=== PATIENT | male | born 1955 | race Caucasian/White ===

== ENCOUNTER 2018-03-30 16:34 | Observation (INO) ==
[2018-03-30] MEDS ORDERED: MethylPREDNISolone Sod Succinate Inj 125 MG/2 ML Vial IV.PUSH ONE (17:23)
--- NOTE | 2018-03-30 17:26 | ED ---
HPI General Chief complaint: Syncope Stated complaint: Syncope Time Seen by Provider: 03/30/18 17:22 History of Present Illness HPI narrative: 62-year-old male with a history of HTN, HLD, JAE, anxiety presents to the emergency department for evaluation of cough and syncope. Patient brought by EMS from the [facility]. Per EMS report the patient experienced a syncopal episode while at the [facility] clinic witnessed by the staff and physician. The patient states that he has had cough and shortness of breath for the past 3 weeks. States that he was treated with a Z-Imtiaz by the [facility] the first week his symptoms began. States that his symptoms persisted and last week he drove to [place] for Thanksgiving. He drove 12 hours as his longest stretch. He states that when he was in [place] he went to the [facility] there and was prescribed Augmentin and Medrol Dosepak. States he has been taking these medications without improvement of his shortness of breath or cough. States that this morning at home he was sitting in his chair and had a coughing fit so bad that he passed out momentarily. States that the same thing happened to him while he was at the [facility] being seen today. States that he did not fall down or hurt himself, he was caught by the [facility] employees and sat in a chair. He denies any chest pain, lightheadedness, dizziness, nausea, vomiting, fever, chills, abdominal pain, swelling of the extremities. No other complaints or concerns. Related Data Home Medications Medication Instructions Recorded Confirmed amoxicillin-pot clavulanate 1 tab PO BID 03/30/18 03/30/18 [Augmentin] cholecalciferol (vitamin D3) 1,000 unit PO DAILY 03/30/18 03/30/18 [Vitamin D3] cyanocobalamin (vitamin B-12) 1,000 mcg PO DAILY 03/30/18 03/30/18 [Vitamin B-12] gabapentin 800 mg PO QID 03/30/18 03/30/18 multivitamin 1 tab PO DAILY 03/30/18 03/30/18 omega 5-xle-nxg-fish oil [Fish Oil] 1 cap PO DAILY 03/30/18 03/30/18 paroxetine HCl [Paxil] 10 mg PO HS 03/30/18 03/30/18 Allergies Allergy/AdvReac Type Severity Reaction Status Date / Time No Known Allergies Allergy Verified 03/30/18 17:23 Review of Systems ROS: all other systems reviewed are negative PMFSH Social History Social History Second Hand Smoke Exposure: No Smoking Status: Former smoker Tobacco Type: Cigarettes How Often Do You Have a Drink Containing Alcohol: 2 to 4 times a month Recent Travel in [facility] within the Last 8 Weeks: No Recent Out of Country Travel within the Last 8 Weeks: No Exam Narrative Exam Narrative: GENERAL: Well-nourished and well-developed pleasant patient in no acute distress who is nontoxic appearing. SKIN: Warm and dry without any obvious rashes or lesions. HEAD: Normocephalic and atraumatic. No bony point tenderness or crepitus noted throughout the sinuses. EYES: No injection, drainage, or hyphema noted. PERRLA. EOMI. ENT: No nasal drainage noted. Oropharynx is clear and the TMs are normal with good landmarks. NECK: Supple and the trachea is midline. No lymphadenopathy is noted throughout the cervical chains. No thyroid masses or abnormalities palpated. No carotid bruits auscultated. CARDIOVASCULAR: Regular rate and rhythm. RESPIRATORY: Breath sounds are equal bilaterally with no accessory muscle use, wheezing, rhonchi, or crackles. GASTROINTESTINAL: Abdomen is soft, non-tender, and nondistended. No hepatosplenomegaly. MUSCULOSKELETAL: No obvious deformities, swelling, cyanosis, or ecchymosis is present throughout the upper and lower extremities. Patient has full range of motion without any signs of neurovascular compromise. Distal pulses are 2+ throughout. BACK: Nontender without any obvious deformities, bony point tenderness, or crepitus noted throughout the thoracic and lumbar vertebrae. NEUROLOGICAL: Awake, alert, and oriented. Normal speech and gait. Cranial nerves are grossly intact. Course Initial Documented Vital Signs Temperature 98.5 F 03/30/18 17:10 Pulse Rate 80 03/30/18 17:10 Respiratory Rate 20 03/30/18 17:10 Blood Pressure 138/84 03/30/18 17:10 Pulse Oximetry 98 03/30/18 17:10 Last Documented Vital Signs Temperature 98.5 F 03/30/18 17:10 Pulse Rate 91 H 03/30/18 19:31 Respiratory Rate 18 03/30/18 19:31 Blood Pressure 142/81 H 03/30/18 19:31 Pulse Oximetry 97 03/30/18 19:31 Medical Decision Making ITALO Attestation ITALO supervised visit: Yes Attestation: I, Dr. Pimentel, have reviewed the advance practice practitioner' s documentation and am in agreement, met with the patient face to face, made the diagnosis, and the medical decision making was done by me. The patient was initially evaluated by Bonny Gupta. Please see their complete history and physical. *My assessment and Findings: The patient presents with persistent bronchitic type of symptoms with cough and shortness of breath. Shortness of breath was after a long drive to [place] which raises the risk factor for pulmonary embolus.... Will have CT chest rule out PE as part of the workup During the course of the patient's emergency department visit, the patient's history, examination, and differential diagnosis were reviewed with the patient. The patient was placed on a earth moving machine operator with oximetry and frequent blood pressure monitoring. The patient had [peripheral] IV access obtained and blood work sent for analysis. The patient's laboratory studies were reviewed . Radiology studies were reviewed and remarkable for mild cardiomegaly.... In lieu of mild cardiomegaly on chest x-ray and syncopal episode it would be best for the patient to be admitted for observation and further evaluation to ensure that it is not something other than of medical syncope such as HCM MDM Narrative Medical decision making narrative: 62-year-old male presents to the emergency department for evaluation of cough for 3 weeks and 2 episodes of syncope today while coughing. Patient is afebrile, vital signs are stable. On physical examination he does have wheezing throughout lung moreno. IV access is obtained , labs of been drawn and sent. Patient is placed on cardiac telemetry and pulse oximetry monitoring. Patient is administered epidural nebs x3 and Solu- Medrol 125 mill grams IV. CBC is unremarkable. Coags are unremarkable. CMP is unremarkable. Troponin is less than 0.02. BNP is unremarkable. Head CT is negative for any acute abnormalities. Chest x-ray is negative with the exception of mild cardiomegaly. CT pulmonary angiogram is negative for PE. Influenza swab is negative. Patient reassessed and states that his shortness of breath and cough greatly improved with the nebulizers. Lungs are now clear to auscultation bilaterally. I do recommend that he stay for observation due to syncope and other risk factors. Patient is agreeable with this plan. I spoke with Dr. Cherry [facility] who accepts patient for admission. Medical Screen Exam Complete: Yes Emergency Medical Condition: Yes Lab Data Result diagrams: 03/30/18 17:45 03/30/18 17:45 Lab Results 03/30/18 03/30/18 03/30/18 Range/Units 17:45 17:45 17:45 WBC 9.6 (4.0-11.0) th/mm3 RBC 4.25 L (4.50-5.90) mil/mm3 Hgb 14.1 (13.0-17.0) gm/dL Hct 39.9 (39.0-51.0) % MCV 93.9 (80.0-100.0) fL MCH 33.1 (27.0-34.0) pg MCHC 35.3 (32.0-36.0) % RDW 13.9 (11.6-17.2) % Plt Count 197 (150-450) th/mm3 MPV 8.1 (7.0-11.0) fL Neut % (Auto) 66.0 (16.0-70.0) % Lymph % (Auto) 18.8 (9.0-44.0) % [place] % (Auto) 8.5 H (0.0-8.0) % Eos % (Auto) 5.6 H (0.0-4.0) % Baso % (Auto) 1.1 (0.0-2.0) % Neut # (Auto) 6.3 (1.8-7.7) th/mm3 Lymph # (Auto) 1.8 (1.0-4.8) th/mm3 [place] # (Auto) 0.8 (0.0-0.9) th/mm3 Eos # (Auto) 0.5 H (0.0-0.4) th/mm3 Baso # (Auto) 0.1 (0.0-0.2) th/mm3 WBC Differential . Differential Comment Auto diff final PT 9.8 (9.8-11.6) sec INR 1.0 Ratio APTT 26.1 (23.4-31.7) sec Sodium 135 L (136-145) meq/L Potassium 3.7 (3.5-5.1) meq/L Chloride 103 (98-107) meq/L Carbon Dioxide 28.0 (21.0-32.0) meq/L Anion Gap 4 L (5-15) meq/L BUN 14 (7-18) mg/dL Creatinine 0.92 (0.60-1.30) mg/dL Estimated GFR 84 L (>89) mL/min Random Glucose 117 H (74-106) mg/dL Calcium 9.7 (8.5-10.1) mg/dL Total Bilirubin 0.3 (0.2-1.0) mg/dL AST 25 (15-37) U/L ALT 47 (12-78) U/L Alkaline Phosphatase 108 (45-117) U/L Troponin I Less than 0.02 L (0.02-0.05) ng/mL B-Natriuretic Peptide (0-100) pg/mL Total Protein 7.5 (6.4-8.2) g/dL Albumin 3.9 (3.4-5.0) g/dL 03/30/18 Range/Units 17:45 WBC (4.0-11.0) th/mm3 RBC (4.50-5.90) mil/mm3 Hgb (13.0-17.0) gm/dL Hct (39.0-51.0) % MCV (80.0-100.0) fL MCH (27.0-34.0) pg MCHC (32.0-36.0) % RDW (11.6-17.2) % Plt Count (150-450) th/mm3 MPV (7.0-11.0) fL Neut % (Auto) (16.0-70.0) % Lymph % (Auto) (9.0-44.0) % [place] % (Auto) (0.0-8.0) % Eos % (Auto) (0.0-4.0) % Baso % (Auto) (0.0-2.0) % Neut # (Auto) (1.8-7.7) th/mm3 Lymph # (Auto) (1.0-4.8) th/mm3 [place] # (Auto) (0.0-0.9) th/mm3 Eos # (Auto) (0.0-0.4) th/mm3 Baso # (Auto) (0.0-0.2) th/mm3 WBC Differential Differential Comment PT (9.8-11.6) sec INR Ratio APTT (23.4-31.7) sec Sodium (136-145) meq/L Potassium (3.5-5.1) meq/L Chloride (98-107) meq/L Carbon Dioxide (21.0-32.0) meq/L Anion Gap (5-15) meq/L BUN (7-18) mg/dL Creatinine (0.60-1.30) mg/dL Estimated GFR (>89) mL/min Random Glucose (74-106) mg/dL Calcium (8.5-10.1) mg/dL Total Bilirubin (0.2-1.0) mg/dL AST (15-37) U/L ALT (12-78) U/L Alkaline Phosphatase (45-117) U/L Troponin I (0.02-0.05) ng/mL B-Natriuretic Peptide 15 (0-100) pg/mL Total Protein (6.4-8.2) g/dL Albumin (3.4-5.0) g/dL Imaging Data Radiologist's impression: Chest X-Ray 03/30/18 17:23 CONCLUSION: No acute cardiopulmonary disease. Chest CTA 03/30/18 17:24 CONCLUSION: 1. This study is negative for pulmonary embolism. Head CT 03/30/18 18:09 CONCLUSION: 1. No acute intracranial abnormality. . Discharge Plan Physicians Team ED Provider: Glen Pimentel ED Midlevel Provider: Bonny Gupta Primary Care Provider: UNKNOWN, Rxs /Orders / Referrals /Forms Prescriptions: No Action multivitamin Tablet 1 tab PO DAILY RF: 0 paroxetine HCl [Paxil] 10 mg Tablet 10 mg PO HS RF: 0 cyanocobalamin (vitamin B-12) [Vitamin B-12] 1,000 mcg Tablet 1,000 mcg PO DAILY RF: 0 gabapentin 800 mg Tablet 800 mg PO QID RF: 0 amoxicillin-pot clavulanate [Augmentin] 875-125 mg Tablet 1 tab PO BID RF: 0 cholecalciferol (vitamin D3) [Vitamin D3] 1,000 unit Capsule 1,000 unit PO DAILY RF: 0 omega 3-glc-rxg-fish oil [Fish Oil] 1,000 mg (120 mg-180 mg) Capsule 1 cap PO DAILY RF: 0 Discharge Interventions Interventions: Vital Signs Last Done: 03/30/18 19:31 Status ED Status: With Doctor
--- NOTE | 2018-03-30 17:46 | XR ---
EXAM DATE: 03/30/2018 5:40 PM EST AGE/SEX: 62 years / Male INDICATIONS: Patient states short of breath for 3 weeks. CLINICAL DATA: This is the patient's initial encounter. Patient reports that signs and symptoms have been present for 3 weeks and indicates a pain score of 2/10. MEDICAL/SURGICAL HISTORY: Hypertension. High blood pressure. Anxiety. None. COMPARISON: No prior exams available for comparison. FINDINGS: A single AP view of the chest demonstrates the lungs to be symmetrically aerated without evidence of mass, infiltrate or effusion. Mild cardiomegaly. The cardiomediastinal contours are unremarkable. Os seous structures are intact. CONCLUSION: No acute cardiopulmonary disease. Electronically signed by: Darrick Duong MD 03/30/2018 5:45 PM EST
[2018-03-30 18:25] LABS: Baso # (Auto) 0.1 th/mm3 (0.0-0.2); Baso % (Auto) 1.1 % (0.0-2.0); Eos # (Auto) 0.5 th/mm3 (0.0-0.4); Eos % (Auto) 5.6 % (0.0-4.0); Hematocrit 39.9 % (39.0-51.0); Hemoglobin 14.1 gm/dL (13.0-17.0); Lymph # (Auto) 1.8 th/mm3 (1.0-4.8); Lymph % (Auto) 18.8 % (9.0-44.0); Mean Corpuscular HGB Conc 35.3 % (32.0-36.0); Mean Corpuscular Hemoglobin 33.1 pg (27.0-34.0); Mean Corpuscular Volume 93.9 fL (80.0-100.0); Mean Platelet Volume 8.1 fL (7.0-11.0); Mono # (Auto) 0.8 th/mm3 (0.0-0.9); Mono % (Auto) 8.5 % (0.0-8.0); Neut # (Auto) 6.3 th/mm3 (1.8-7.7); Platelet Count 197 th/mm3 (150-450); Red Blood Count 4.25 mil/mm3 (4.50-5.90); Red Cell Distribution Width 13.9 % (11.6-17.2); White Blood Count 9.6 th/mm3 (4.0-11.0)
[2018-03-30 18:32] LABS: Activated Partial Thrombo Time 26.1 sec (23.4-31.7); Prothrombin Time 9.8 sec (9.8-11.6)
[2018-03-30 18:50] LABS: Alanine Aminotransferase 47 U/L (12-78); Albumin 3.9 g/dL (3.4-5.0); Anion Gap 4 meq/L (5-15); Aspartate Aminotransferase 25 U/L (15-37); Calcium 9.7 mg/dL (8.5-10.1); Chloride 103 meq/L (98-107); Glomerular Filtration Rate 84 mL/min (>89); Glucose,Random 117 mg/dL (74-106); Potassium 3.7 meq/L (3.5-5.1); Sodium 135 meq/L (136-145)
[2018-03-30 18:57] LABS: Alkaline Phosphatase 108 U/L (45-117); Blood Urea Nitrogen 14 mg/dL (7-18); Total Protein 7.5 g/dL (6.4-8.2)
--- NOTE | 2018-03-30 19:34 | CT ---
EXAM DATE: 03/30/2018 7:31 PM EST AGE/SEX: 62 years / Male INDICATIONS: Dizzy CLINICAL DATA: This is the patient's initial encounter. Patient reports that signs and symptoms have been present for 1 day and indicates a pain score of 0/10. MEDICAL/SURGICAL HISTORY: None. None. RADIATION DOSE: 64.20 CTDI (mGy) COMPARISON: No prior exams available for comparison. TECHNIQUE: CT of the head without contrast. Using automated exposure control and adjustment of the mA and/or kV according to patient size, radiation dose was kept as low as reasonably achievable to ob tain optimal diagnostic quality images. DICOM format image data is available electronically for revi ew and comparison. FINDINGS: Cerebrum: Mild diffuse cerebral atrophy. The ventricles are normal for degree of atrophy. No evidenc e of midline shift, mass lesion, hemorrhage or acute infarction. No extraaxial fluid collections are seen. Posterior Fossa: The cerebellum and brainstem are intact. The 4th ventricle is midline. The cerebe llopontine angle is unremarkable. Extracranial: The visualized portion of the orbits is intact. Skull: The calvaria is intact. No evidence of skull fracture. CONCLUSION: 1. No acute intracranial abnormality. . Electronically signed by: Landen Bahena MD 03/30/2018 7:33 PM EST
--- NOTE | 2018-03-30 19:44 | CT ---
EXAM DATE: 03/30/2018 7:37 PM EST AGE/SEX: 62 years / Male INDICATIONS: Syncopal episode coughing CLINICAL DATA: This is the patient's initial encounter. Patient reports that signs and symptoms have been present for 1 day and indicates a pain score of 0/10. MEDICAL/SURGICAL HISTORY: None. None. RADIATION DOSE: 23.40 CTDI (mGy) COMPARISON: No prior exams available for comparison. TECHNIQUE: Volumetric scanning was performed using a multi-row detector CT scanner during bolus infu adelfo of 71 ml Omnipaque 350 (iohexol) nonionic water-soluble contrast as a single exam dose. The skyler a was post processed with a variety of visualization algorithms including full volume maximum intensi ty projection and sliding thin slab reformation. Using automated exposure control and adjustment of t he mA and/or kV according to patient size, radiation dose was kept as low as reasonably achievable to obtain optimal diagnostic quality images. DICOM format image data is available electronically for r eview and comparison. FINDINGS: Pulmonary Arteries: No filling defects are seen in the pulmonary arteries out to the subsegmental ve ssels. The left and right pulmonary arteries are normal in diameter. Lung: No infiltrates seen. Effusion: None. Mediastinum: No evidence of mediastinal or hilar adenopathy. Other: The axilla is unremarkable. CONCLUSION: 1. This study is negative for pulmonary embolism. Electronically signed by: Jayden Dubois MD 03/30/2018 7:43 PM EST
--- NOTE | 2018-03-30 22:49 | P.HP ---
History of Present Illness Service: [facility] Primary Care Physician: UNKNOWN History of Present Illness: 62-year-old male with a past medical history significant for obstructive sleep apnea, hypertension, hyperlipidemia, neuropathy, osteoarthritis, nephrolithiasis , gout and anxiety presents to the emergency department for further evaluation of syncope. The patient was being seen at the [facility] today when he had 2 episodes of witnessed syncope. Will hold these episodes occur regularly but have recently worsened with his recent diagnosis of bronchitis. He reports that he has a coughing fit well then began shaking and then loses consciousness for several seconds. He has no memory of the event. His partner who is bedside states that he is often confused for several minutes following each episode. She denies any generalized clonic tonic seizure activity or muscle rigidity. No chest pain or shortness of breath. No abdominal pain. No nausea/vomiting/ diarrhea. No fever/chills. No focal neurologic deficits. Review of Systems All other systems reviewed negative except as stated in HPI PMFSH - History History Provided By: Patient, Adhesive Sprayer / EMT - Medical History Medical History: Medical History (Last Updated 03/30/18 @ 22:41 by Annia Cherry MD) Anxiety Gout Hyperlipidemia Hypertension Nephrolithiasis Neuropathy Obstructive sleep apnea Osteoarthritis - Surgical History Surgical History: Surgical History (Last Updated 03/30/18 @ 22:42 by Annia Cherry MD) History of hand surgery History of hip surgery History of knee surgery - Family History Family History: Family History (Last Updated 03/30/18 @ 22:42 by Annia Cherry MD) Other Diabetes mellitus - Social History I have reviewed the patient's Social History: Yes - Tobacco History Second Hand Smoke Exposure: No Tobacco Use In Past 30 Days: No Smoking Status: Former smoker Tobacco Type: Cigarettes - Alcohol History How Often Do You Have a Drink Containing Alcohol: 2 to 4 times a month - Travel History Recent Travel in the [place] Within the Last 8 Weeks: No Recent Travel Out of the Country Within the Last 8 Weeks: No - Immunization History Tetanus Immunization: <5 Years Medications and Allergies Active Medications: Active Medications Albuterol (Albuterol Neb (Prn)) 2.5 mg NEB Q4HR NEB PRN PRN Reason: sob/wheezing Allergies Allergy/AdvReac Type Severity Reaction Status Date / Time No Known Allergies Allergy Verified 03/30/18 17:23 Home Medications Medication Instructions Recorded Confirmed Type amoxicillin-pot clavulanate 1 tab PO BID 03/30/18 03/30/18 History [Augmentin] cholecalciferol (vitamin D3) 1,000 unit PO DAILY 03/30/18 03/30/18 History [Vitamin D3] cyanocobalamin (vitamin B-12) 1,000 mcg PO DAILY 03/30/18 03/30/18 History [Vitamin B-12] gabapentin 800 mg PO QID 03/30/18 03/30/18 History multivitamin 1 tab PO DAILY 03/30/18 03/30/18 History omega 2-gss-tow-fish oil [Fish Oil] 1 cap PO DAILY 03/30/18 03/30/18 History paroxetine HCl [Paxil] 10 mg PO HS 03/30/18 03/30/18 History Exam Vital signs: Vital Signs 03/30/18 17:10 03/30/18 17:43 03/30/18 17:52 Temperature 98.5 F Pulse Rate 80 83 87 Respiratory Rate 20 24 23 Blood Pressure 138/84 Pulse Oximetry 98 98 03/30/18 18:00 03/30/18 19:31 Temperature Pulse Rate 86 91 H Respiratory Rate 22 18 Blood Pressure 142/81 H Pulse Oximetry 97 Intake & Output 03/30/18 03/30/18 03/31/18 06:59 18:59 06:59 Weight 122.47 kg Narrative: Gen.: No acute distress Head: Normocephalic. Atraumatic. EENT: Pupils equal round and reactive to light. Nose without drainage. Airway intact. Throat without injection. Cardiovascular: Regular rate and rhythm. No murmurs, rubs or gallops. Respiratory: Lungs clear to auscultation bilaterally. No wheezes or rhonchi. Abdomen: Soft, nontender, nondistended. No peritoneal signs. Musculoskeletal: No gross deformities. No edema. Skin: No obvious rashes or erythema. Neuro: Sensory and motor grossly intact. Cranial nerves II through XII grossly intact. Results - Labs CBC & Chem 7: 03/30/18 17:45 03/30/18 17:45 Labs: Laboratory Results - last 24 hr 03/30/18 03/30/18 03/30/18 17:45 17:45 17:45 WBC 9.6 RBC 4.25 L Hgb 14.1 Hct 39.9 MCV 93.9 MCH 33.1 MCHC 35.3 RDW 13.9 Plt Count 197 MPV 8.1 Neut % (Auto) 66.0 Lymph % (Auto) 18.8 [place] % (Auto) 8.5 H Eos % (Auto) 5.6 H Baso % (Auto) 1.1 Neut # (Auto) 6.3 Lymph # (Auto) 1.8 [place] # (Auto) 0.8 Eos # (Auto) 0.5 H Baso # (Auto) 0.1 WBC Differential . Differential Comment Auto diff final PT 9.8 INR 1.0 APTT 26.1 Sodium 135 L Potassium 3.7 Chloride 103 Carbon Dioxide 28.0 Anion Gap 4 L BUN 14 Creatinine 0.92 Estimated GFR 84 L Random Glucose 117 H Calcium 9.7 Total Bilirubin 0.3 AST 25 ALT 47 Alkaline Phosphatase 108 Troponin I Less than 0.02 L B-Natriuretic Peptide Total Protein 7.5 Albumin 3.9 03/30/18 17:45 WBC RBC Hgb Hct MCV MCH MCHC RDW Plt Count MPV Neut % (Auto) Lymph % (Auto) [place] % (Auto) Eos % (Auto) Baso % (Auto) Neut # (Auto) Lymph # (Auto) [place] # (Auto) Eos # (Auto) Baso # (Auto) WBC Differential Differential Comment PT INR APTT Sodium Potassium Chloride Carbon Dioxide Anion Gap BUN Creatinine Estimated GFR Random Glucose Calcium Total Bilirubin AST ALT Alkaline Phosphatase Troponin I B-Natriuretic Peptide 15 Total Protein Albumin - Imaging Impressions Chest X-Ray 03/30/18 17:23 CONCLUSION: No acute cardiopulmonary disease. Chest CTA 03/30/18 17:24 CONCLUSION: 1. This study is negative for pulmonary embolism. Head CT 03/30/18 18:09 CONCLUSION: 1. No acute intracranial abnormality. . Caprini VTE Risk Assessment Caprini VTE Risk Assessment: Moderate/High Risk (score >= 2) Caprini Risk Assessment Model: Point Value = 1 Point Value = 2 Point Value = 3 Point Value = 5 Age 41-60 Minor surgery BMI > 25 kg/m2 Swollen legs Varicose veins or History of unexplained or recurrent spontaneous Oral contraceptives or hormone replacement Sepsis (< 1 month) Serious lung disease, including pneumonia (< 1 month) Abnormal pulmonary function Acute myocardial infarction Congestive heart failure (< 1 month) History of inflammatory bowel disease Medical patient at bed rest Age 61-74 Arthroscopic surgery Major open surgery (> 45 min) Laparoscopic surgery (> 45 min) Malignancy Confined to bed (> 72 hours) Immobilizing plaster cast Central venous access Age >= 75 History of VTE Family history of VTE Factor V Leiden Prothrombin [id number] Lupus anticoagulant Anticardiolipin antibodies Elevated serum homocysteine Heparin-induced thrombocytopenia Other congenital or acquired thrombophilia Stroke (< 1 month) Elective arthroplasty Hip, pelvis, or leg fracture Acute spinal cord injury (< 1 month) Prophylaxis Regimen: Total Risk Factor Score Risk Level Prophylaxis Regimen 0-1 Low Early ambulation 2 Moderate Order ONE of the following: *Sequential Compression Device (SCD) *Heparin 5000 units SQ BID 3-4 Higher Order ONE of the following medications: *Heparin 5000 units SQ TID *Enoxaparin/Lovenox 40 mg SQ daily (WT < 150 kg, CrCl > 30 mL/min) *Enoxaparin/Lovenox 30 mg SQ daily (WT < 150 kg, CrCl > 10-29 mL/min) *Enoxaparin/Lovenox 30 mg SQ BID (WT < 150 kg, CrCl > 30 mL/min) AND/OR *Sequential Compression Device (SCD) 5 or more Highest Order ONE of the following medications: *Heparin 5000 units SQ TID (Preferred with Epidurals) *Enoxaparin/Lovenox 40 mg SQ daily (WT < 150 kg, CrCl > 30 mL/min) *Enoxaparin/Lovenox 30 mg SQ daily (WT < 150 kg, CrCl > 10-29 mL/min) *Enoxaparin/Lovenox 30 mg SQ BID (WT < 150 kg, CrCl > 30 mL/min) AND *Sequential Compression Device (SCD) Assessment and Plan - Plan Assessment/plan: 1. Syncope Episodes followed by confusion, concerning for postictal state Head CT negative EEG pending Echo/carotid ultrasound pending May be vasovagal as episodes are always preceded by coughing fit 2. Hypertension/hyperlipidemia Continue home medications 3. Neuropathy Continue gabapentin 4. JAE Patient reports he does not sleep with his CPAP because it is too irritating FEN Heart healthy diet Electrolytes: Monitor and replete as needed Heparin
--- NOTE | 2018-03-30 23:23 | US ---
EXAM DATE: 03/30/2018 11:16 PM EST AGE/SEX: 62 years / Male INDICATIONS: Syncope. CLINICAL DATA: This is the patient's initial encounter. Patient reports that signs and symptoms have been present for 1 day and indicates a pain score of 0/10. MEDICAL/SURGICAL HISTORY: Hypertension. Osteoarthritis. Gout. Hyperlipidemia. Nephrolithiasis. Sleep apnea. . Hand surgery. Knee surgery. Hip surgery. COMPARISON: No prior exams available for comparison. VELOCITY PARAMETERS: ICA/CCA Ratio: Right 0.9 , Left 0.8 ICA: Right 77 cm/sec, Left 79 cm/sec CCA: Right 90 cm/sec, Left 104 cm/sec ECA: Right 108 cm/sec, Left 132 cm/sec Vertebral: Right Not visualized. cm/sec absent, Left Not visualized. cm/sec absent FINDINGS: Right Carotid: No significant plaque is visualized.The waveforms are within normal limits. Left Carotid: No significant plaque is visualized. The waveforms are within normal limits. Other: None. CONCLUSION: 1. Right Internal Carotid Artery: No significant stenosis or atherosclerotic plaque is visualized. 2. Left Internal Carotid Artery: No significant stenosis or atherosclerotic plaque is visualized. Electronically signed by: Morgan Ortiz MD 03/30/2018 11:21 PM EST
[2018-03-31 08:13] VITALS: O2SAT 94
[2018-03-31] MEDS ORDERED: amLODIPine 10 MG Tablet PO SCH (09:00)
[2018-03-31 09:06] VITALS: PULSE 88; RESP 18; TEMP 98.3
[2018-03-31 09:07] VITALS: BP 146/88
--- NOTE | 2018-03-31 10:11 | ECG ---
Date Performed: 03/30/2018 Time Performed: 20:15:42 PTAGE: 62 years EKG: Sinus rhythm NORMAL ECG NO PREVIOUS TRACING DOCTOR: Jayden Chen Interpretating Date/Time 03/31/2018 10:11:35
--- NOTE | 2018-03-31 10:27 | P.PN ---
Subjective Interval history: Follow up for syncope, bronchitis. The patient reports feeling better today. He states his cough has improved. Denies any fevers or chills. Denies any chest pain shortness of breath. Denies any lightheadedness or dizziness. He has been ambulating his room without difficulty. He is tolerating oral intake. He has no other medical complaints at this time. Physical Exam Vital signs: Vital Signs 03/30/18 17:10 03/30/18 17:43 03/30/18 17:52 Temperature 98.5 F Pulse Rate 80 83 87 Respiratory Rate 20 24 23 Blood Pressure 138/84 Pulse Oximetry 98 98 03/30/18 18:00 03/30/18 19:31 03/30/18 23:44 Temperature 97.9 F Pulse Rate 86 91 H 95 H Respiratory Rate 22 18 20 Blood Pressure 142/81 H 158/84 H Pulse Oximetry 97 95 03/31/18 00:57 03/31/18 04:00 03/31/18 08:12 Temperature 98.2 F Pulse Rate 88 83 Respiratory Rate 20 Blood Pressure 121/57 L Pulse Oximetry 93 L 94 L 03/31/18 09:05 Temperature 98.3 F Pulse Rate 88 Respiratory Rate 18 Blood Pressure 146/88 H Pulse Oximetry 94 L Intake & Output 03/30/18 03/31/18 03/31/18 18:59 06:59 18:59 Intake Total 240 / 240 Balance 240 / 240 Weight 122.47 kg 124.738 kg Intake: Oral 240 / 240 Other: # Voids 1 Date of Last Bowel Movement 03/30/18 03/30/18 Weight On Admission 124.738 kg Narrative: GENERAL: Well-nourished, well-developed middle aged male patient in [facility]. SKIN: Warm and dry. No rash. HEENT: Normocephalic. Atraumatic. Pupils equal and round. Mucous membranes pink and moist. Oropharynx clear. CARDIOVASCULAR: Regular rate and rhythm. No murmur appreciated. RESPIRATORY: No accessory muscle use. Clear to auscultation. Breath sounds equal bilaterally. GASTROINTESTINAL: Abdomen soft, non-tender, nondistended. Normoactive bowel sounds x4. MUSCULOSKELETAL: No obvious deformities. Extremities without clubbing, cyanosis , or edema. NEUROLOGICAL: Awake and alert. No obvious cranial nerve deficits. Moving all extremities spontaneously. Normal speech. PSYCHIATRIC: Appropriate mood and affect; insight and judgment normal. Results - Labs CBC & Chem 7: 03/31/18 09:59 03/31/18 09:59 Laboratory Results - last 24 hr 03/30/18 03/30/18 03/30/18 17:45 17:45 17:45 WBC 9.6 RBC 4.25 L Hgb 14.1 Hct 39.9 MCV 93.9 MCH 33.1 MCHC 35.3 RDW 13.9 Plt Count 197 MPV 8.1 Neut % (Auto) 66.0 Lymph % (Auto) 18.8 Faulk % (Auto) 8.5 H Eos % (Auto) 5.6 H Baso % (Auto) 1.1 Neut # (Auto) 6.3 Lymph # (Auto) 1.8 Faulk # (Auto) 0.8 Eos # (Auto) 0.5 H Baso # (Auto) 0.1 WBC Differential . Differential Comment Auto diff final PT 9.8 INR 1.0 APTT 26.1 Sodium 135 L Potassium 3.7 Chloride 103 Carbon Dioxide 28.0 Anion Gap 4 L BUN 14 Creatinine 0.92 Estimated GFR 84 L Random Glucose 117 H Calcium 9.7 Total Bilirubin 0.3 AST 25 ALT 47 Alkaline Phosphatase 108 Troponin I Less than 0.02 L B-Natriuretic Peptide Total Protein 7.5 Albumin 3.9 03/30/18 17:45 WBC RBC Hgb Hct MCV MCH MCHC RDW Plt Count MPV Neut % (Auto) Lymph % (Auto) Faulk % (Auto) Eos % (Auto) Baso % (Auto) Neut # (Auto) Lymph # (Auto) Faulk # (Auto) Eos # (Auto) Baso # (Auto) WBC Differential Differential Comment PT INR APTT Sodium Potassium Chloride Carbon Dioxide Anion Gap BUN Creatinine Estimated GFR Random Glucose Calcium Total Bilirubin AST ALT Alkaline Phosphatase Troponin I B-Natriuretic Peptide 15 Total Protein Albumin Microbiology 03/30/18 17:45 Nasal Wash Influenza Types A,B Antigen - Final Negative for FLU A and B antigen Infection due to influenza A or B cannot be ruled out since the antigen present in the sample may be below the detection limit of the test. - Imaging Impressions Carotid Doppler Study 03/30/18 00:00 CONCLUSION: 1. Right Internal Carotid Artery: No significant stenosis or atherosclerotic plaque is visualized. 2. Left Internal Carotid Artery: No significant stenosis or atherosclerotic plaque is visualized. Chest X-Ray 03/30/18 17:23 CONCLUSION: No acute cardiopulmonary disease. Chest CTA 03/30/18 17:24 CONCLUSION: 1. This study is negative for pulmonary embolism. Head CT 03/30/18 18:09 CONCLUSION: 1. No acute intracranial abnormality. . Assessment and Plan - Plan 62-year-old male with a past medical history significant for obstructive sleep apnea, hypertension, hyperlipidemia, neuropathy, osteoarthritis, nephrolithiasis , gout and anxiety presents to the emergency department for further evaluation of syncope. Syncope: 2 episodes followed by confusion, concerning for postictal state, however suspect vasovagal as episodes preceded by coughing fit -Head CT reviewed and negative -Carotid U/S unremarkable -Orthostatic blood pressures negative -EEG pending -Echocardiogram normal with EF 60-65% -no further episodes Acute Bronchitis: suspect viral, symptoms already improving -Chest CTA negative for PE, no acute findings -complete patient's course of antibiotics with Augmentin prescribed prior to admission -cough improving Hypertension/hyperlipidemia: chronic -Continue patient's home Norvasc Neuropathy: chronic -Continue gabapentin JAE: chronic -Patient reports he does not sleep with his CPAP because it is too irritating DVT Prophylaxis: patient is ambulatory Discharge Planning: Plan to discharge today if EEG unremarkable. Discharge patient to home Condition on discharge: Stable Cardiac Diet as tolerated Ad Radha activity Rx written: no new meds Follow-up with primary care physician
[2018-03-31 10:28] LABS: Baso % (Auto) 0.2 % (0.0-2.0); Hemoglobin 14.4 gm/dL (13.0-17.0); Lymph # (Auto) 0.8 th/mm3 (1.0-4.8); Lymph % (Auto) 5.9 % (9.0-44.0); Mean Corpuscular HGB Conc 33.6 % (32.0-36.0); Mean Corpuscular Hemoglobin 31.5 pg (27.0-34.0); Mean Corpuscular Volume 93.9 fL (80.0-100.0); Mean Platelet Volume 8.2 fL (7.0-11.0); Mono # (Auto) 0.5 th/mm3 (0.0-0.9); Mono % (Auto) 3.7 % (0.0-8.0); Neut # (Auto) 12.7 th/mm3 (1.8-7.7); Neut % (Auto) 90.2 % (16.0-70.0); Platelet Count 223 th/mm3 (150-450); Red Blood Count 4.57 mil/mm3 (4.50-5.90); Red Cell Distribution Width 14.2 % (11.6-17.2); White Blood Count 14.1 th/mm3 (4.0-11.0)
[2018-03-31 10:46] LABS: Anion Gap 7 meq/L (5-15); Blood Urea Nitrogen 14 mg/dL (7-18); Calcium 9.8 mg/dL (8.5-10.1); Carbon Dioxide 26.7 meq/L (21.0-32.0); Chloride 103 meq/L (98-107); Glomerular Filtration Rate Greater Than 89 mL/min (>89); Glucose,Random 135 mg/dL (74-106); Potassium 4.1 meq/L (3.5-5.1); Sodium 137 meq/L (136-145)
--- NOTE | 2018-03-31 12:37 | ECHRPT ---
Indication: SYNCOPE CONCLUSIONS The left ventricular systolic function is normal with an estimated ejection fraction in the range of 60-65%. Normal left ventricular size. Wall thickness is normal. No regional wall motion abnormalities are present. The pulmonary valve is not well visualized. BP: / HR: Rhythm: Sinus MEASUREMENTS (Male / Female) Normal Values Technical Quality:Good 2D ECHO LV Diastolic Diameter PLAX 3.8 cm 4.2 - 5.9 / 3.9 - 5.3 cm LV Systolic Diameter PLAX 2.6 cm IVS Diastolic Thickness 1.0 cm 0.6 - 1.0 / 0.6 - 0.9 cm LVPW Diastolic Thickness 1.1 cm 0.6 - 1.0 / 0.6 - 0.9 cm LV Relative Wall Thickness 0.5 LVOT Diameter 1.9 cm LA Systolic Diameter LX 3.9 cm 3.0 - 4.0 / 2.7 - 3.8 cm M-MODE Aortic Root Diameter MM 2.5 cm LA Systolic Diameter MM 4.0 cm LA Ao Ratio MM 1.6 AV Cusp Separation MM 2.2 cm DOPPLER AV Peak Velocity 149.0 cm/s AV Peak Gradient 8.9 mmHg LVOT Peak Velocity 104.0 cm/s LVOT Peak Gradient 4.3 mmHg AV Area Cont Eq pk 2.0 cm MV Area PHT 3.0 cm Mitral E Point Velocity 73.1 cm/s Mitral A Point Velocity 66.6 cm/s Mitral E to A Ratio 1.1 LV E' Lateral Velocity 12.5 cm/s Mitral E to LV E' Lateral Ratio 5.8 LV E' Septal Velocity 6.4 cm/s Mitral E to LV E' Septal Ratio 11.4 PV Peak Velocity 136.0 cm/s PV Peak Gradient 7.4 mmHg FINDINGS LEFT VENTRICLE The left ventricular systolic function is normal with an estimated ejection fraction in the range of 60-65%. Normal left ventricular size. Wall thickness is normal. No regional wall motion abnormalities are present. RIGHT VENTRICLE Normal right ventricular size and systolic function. LEFT ATRIUM The left atrial size is normal. RIGHT ATRIUM The right atrial size is normal. ATRIAL SEPTUM Normal atrial septal thickness without atrial level shunting by limited color doppler interrogation. AORTA The aortic root and proximal ascending aorta are normal in size on limited imaging. MITRAL VALVE Structurally normal mitral valve. No mitral valve stenosis or regurgitation. AORTIC VALVE Trileaflet aortic valve. No aortic valve stenosis or regurgitation. TRICUSPID VALVE Structurally normal tricuspid valve. No tricuspid valve stenosis or regurgitation. PULMONARY VALVE The pulmonary valve is not well visualized. VESSELS The inferior vena cava is normal in size. PERICARDIUM No pericardial effusion. Jayden Chen MD, FACC (Electronically Signed) Final Date:31 March 2018 12:36
--- NOTE | 2018-03-31 14:58 | MG ---
cc: Juana Snowden MD AGE: [age] years old. EEG NUMBER: [id number]. ROOM H93. Hyperventilation and photic stimulation: Good effort on hyperventilation, awake. CT is negative. Admitted for cough, syncope. A 62-year-old with anxiety, gout, sleep apnea, hyperlipidemia. DESCRIPTION OF RECORD: The patient has an alpha rhythm of 9 Hz, 20-50 microvolts fairly symmetrical background. Photic stimulation does elicit a posterior driving response. Hyperventilation is performed towards the end of the recording. No evidence of any epileptiform features. IMPRESSION: Overall, normal-appearing electroencephalogram without any epileptiform features. Clinical correlation. Juana Snowden MD DF/ , 02:48 PM , 02:53 PM
[2018-03-31] MEDS ORDERED: Amoxicillin/Clavulanate 875/125 MG Tablet PO SCH (15:00)
[2018-03-31] MEDS ORDERED: Gabapentin 400 MG Capsule PO SCH (18:00)
== END 2018-03-31 16:43 | disposition home or self-care (01) ==
LOC: NEDA 16:34 → NEPC 16:34 → NEDA 23:29 → NEPHCDU 23:32
PROVIDERS: ADMIT Hospitalist; ATTEND Hospitalist